=== PATIENT | male | born 1990 | race Caucasian/White ===

== ENCOUNTER 2022-07-17 11:14 | Emergency (ER) | payer OTHER ==
[~2022-07-17] VITALS: Ht 172.7 cm; Wt 85.3 kg
[2022-07-17] MEDS ORDERED: AMOX TR-K CLV1 EAC2 PO (11:55)
[2022-07-17] MEDS ORDERED: CEFTRIAXONE 1 GM VIAL IM ONE (12:15)
[2022-07-17] MEDS ORDERED: LIDOCAINE HCL 1% LOCAL INJ 20 ML VIAL ONE (12:22)
== END 2022-07-17 12:49 | disposition home or self-care (01) ==
LOC: FSED 11:36
DX: L03.115 Cellulitis of right lower limb (principal); I88.8 Other nonspecific lymphadenitis; S81.851D Open bite, right lower leg, subsequent encounter; W54.0XXD Bitten by dog, subsequent encounter
CPT/HCPCS: 81003; 99283; J0696; J2001